=== PATIENT | female | born 1980 | race Caucasian/White ===

== ENCOUNTER → 2016-04-02 | Outpatient (CLI) | payer MEDICAID ==
--- NOTE | 2016-04-02 14:41 | DX ---
Left Foot , Three History:Pain and swelling without known trauma. Findings: There is severe pace planus. There is a large superior talar neck beak. There is possibly e rosive change on either side of the lateral aspect of the III cuneiform bone and third metatarsal. Th ere is cystic or erosive change involving the anterior superior calcaneal process and the adjacent na vicular bone. No fracture or dislocation is identified. Overall mineralization is normal. There is no arthritis. 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 Impression: Severe pace planus. Possible cystic changes described above might be secondary to the pat ient's planus. Is there history of elevated uric acid or systemic erosive arthritis
== END ==
LOC: CIMAGING 14:09
PROVIDERS: ATTEND Family Medicine
DX: M21.42 Flat foot [pes planus] (acquired), left foot (principal)
CPT/HCPCS: 73630-PO

== ENCOUNTER 2017-01-04 11:10 | Emergency (ER) | payer MEDICAID ==
[2017-01-04 11:21] VITALS: BP 132/97; PULSE 107; RESP 16; TEMP 98.6; O2SAT 95
--- NOTE | 2017-01-04 11:30 | EDPHY ---
H & P Time Seen by Provider: 01/04/17 11:22 HPI/ROS: CHIEF COMPLAINT: Sore throat, cough HISTORY OF PRESENT ILLNESS: Patient is a 36-year-old female who presents to the emergency department with multiple complaints. She states that on Friday she BKA pain to feel ill with a sore throat and cough. She went to the [employer] blood drive and was refused because she had elevated blood pressure and temperature of 100degrees. Patient states she has a bilateral sore throat that is moderate. It is worse with swallowing. Patient has also had a productive cough. She has not seen the color of the mucus. She has not measured her temperature at home. She has had no vomiting. No abdominal pain. REVIEW OF SYSTEMS: My complete review of systems is negative except as mentioned in the HPI. Past Medical/Surgical History: Includes anxiety, depression, reactive airway disease Past surgical history: Left foot surgery Social: The patient occasionally smokes cigarettes. She denies drug or alcohol use. Smoking Status: Light smoker Physical Exam: 37.0, 132/97, 107, 16, 95% on room air GENERAL: Well-appearing, in no acute distress, alert. HEENT: Eyes normal to inspection, no signs of dehydration. Her pharynx appears normal. There are no lesions or discharge. Uvula is midline. No asymmetry. No visible mass. NECK: No thyromegaly, no lymphadenopathy, supple. RESPIRATORY: Clear to auscultation bilaterally, no rales, rhonchi or wheezing. Normal. CVS: Regular rate and rhythm, no rubs, murmurs, or gallops. ABDOMEN: Soft, nontender, nondistended, no organomegaly. BACK: Normal to inspection, no CVA tenderness. SKIN: Normal color, no rash, warm, dry. No pallor. EXTREMITIES: No pedal edema, no calf tenderness, no Homans sign or cords, no joint swelling. NEURO/PSYCH: Alert and oriented x3, normal mood and affect, normal motor sensory exam. No obvious cranial nerve deficit. Constitutional: Initial Vital Signs Temperature (C) 37.0 C 01/04/17 11:16 Heart Rate 107 H 01/04/17 11:16 Respiratory Rate 16 01/04/17 11:16 Blood Pressure 132/97 H 01/04/17 11:16 O2 Sat (%) 95 01/04/17 11:16 O2 Delivery Mode Room Air Allergies/Adverse Reactions: nitrofurantoin [From Macrobid] Allergy (Verified 01/04/17 11:14) nitrofurantoin macrocrystalline [From Macrobid] Allergy (Verified 01/04/17 11:14 ) Penicillins Allergy (Verified 01/04/17 11:14) Hives Sulfa (Sulfonamide Antibiotics) Allergy (Verified 01/04/17 11:14) Hives Home Medications: Medication Instructions Recorded traZODONE 11/04/10 Acyclovir [Zovirax 400 mg (*)] 07/23/13 Gabapentin [Neurontin 300 MG (*)] 07/23/13 LORazepam [Ativan (*)] 07/23/13 QUEtiapine FUMARATE [Seroquel 200 07/23/13 mg (RX)] AZITHROMYCIN [Z-PACK] 250 mg PO DAILY #1 packet 01/04/17 Medical Decision Making ED Course/Re-evaluation: In the emergency department I discussed possible etiologies with the patient. I answered all her questions. Based on the patient's ongoing cough, reported fever and history of reactive airway disease with tobacco use, the patient will be given a prescription for azithromycin. This will cover for possible bronchitis in a smoker, pneumonia, and strep pharyngitis. I discussed the pros and cons of x-ray imaging. The patient does not want an x-ray at this time. She understands risks and benefits of this. Patient states that when she has a sore throat in the past her primary care physician has given her dose of steroid. She was given a single dose of Decadron prior to leaving the emergency department for her symptoms. Patient was given warnings prior to leaving. She will return with worsening symptoms. Differential Diagnosis: My differential includes but is not limited to pneumonia, bronchitis, asthma, bacteremia, sepsis, pharyngitis, strep pharyngitis, peritonsillar abscess, retropharyngeal abscess Departure - Departure Disposition: Home, Routine, Self-Care Clinical Impression: Bronchitis Pharyngitis Qualifiers: Pharyngitis/tonsillitis etiology: unspecified etiology Qualified Code(s): J02.9 - Acute pharyngitis, unspecified Condition: Good Instructions: Acute Bronchitis (ED), Pharyngitis (ED) Additional Instructions: Return with increasing shortness of breath, cough, persistent fever, or any other concerns. Referrals: Terell Álvarez MD [Primary Care Provider] - 2-3 days, call for appt. Prescriptions: AZITHROMYCIN [Z-PACK] 250 mg PO DAILY #1 packet
[2017-01-04] MEDS ORDERED: DEXAMETHASONE 4 MG TAB PO ONE (11:31)
== END 2017-01-04 11:42 | disposition home or self-care (01) ==
LOC: CED 11:10
DX: J20.9 Acute bronchitis, unspecified (principal); F17.200 Nicotine dependence, unspecified, uncomplicated; J45.909 Unspecified asthma, uncomplicated

== ENCOUNTER → 2017-05-05 | Outpatient (CLI) | payer MEDICAID | LOC: CIMAGING 14:33 | PROVIDERS: ATTEND Family Medicine | DX: M76.61 Achilles tendinitis, right leg (principal) | CPT/HCPCS: 73630-PO ==

== ENCOUNTER 2018-08-10 10:43 | Inpatient (IN) | payer OTHER, MEDICAID | END 2018-08-12 17:45 | disposition home or self-care (01) | LOC: BBEH 10:43 ==